=== PATIENT | male | born 1960 | race Caucasian/White ===

== ENCOUNTER 2020-09-04 21:36 | Inpatient (IN) ==
[2020-09-04] MEDS ORDERED: LIDOCAINE 1% 20 ML VIAL ONE (21:40)
[2020-09-04] MEDS ORDERED: HEPARIN/NACL 0.9% 2 UNITS/ML 2,000 UNIT/1,000 ML BAG IV ONE (21:40)
[2020-09-04] MEDS ORDERED: HYDROmorphone 2 MG/1 ML VIAL ONE (21:53)
[2020-09-04] MEDS ORDERED: MIDAZOLAM 2 MG/2 ML VIAL ONE (21:53)
[2020-09-04] MEDS ORDERED: BIVALIRUDIN 250 MG VIAL IV ONE (22:07)
[2020-09-04] MEDS: BIVALIRUDIN 250 MG in SODIUM CHLORIDE 0.9% 50 ML IV SCH (22:13)
[2020-09-04] MEDS ORDERED: TICAGRELOR 90 MG TABLET ONE (22:36)
[2020-09-04 22:40] LABS: Basophils % 0.4 % (0.0-0.8); Eosinophils # 0.1 10*3/uL (0.0-0.87); Eosinophils % 1.4 % (0.00-10.9); Hematocrit 43.2 VOL% (42.0-52.0); Immature Granulocytes % 0.4 %; Immature Granulocytes Absolute 0.03 #; Lymphocytes # 1.1 10*3/uL (1.4-4.0); Lymphocytes % 14.1 % (21.2-54.2); Mean Corpuscular HGB Conc 32.4 GM/DL (32-36); Mean Corpuscular Volume 91.9 FL (87-102); Mean Platelet Volume 11.8 FL (9.6-12.0); Monocytes % 7.5 % (1.7-12.7); Neutrophils % 76.2 % (38.7-73.9); Platelet Count 198 T/CUMM (130-400); Red Cell Distribution Width 14.4 % (9.3-17.3); White Blood Count 7.8 T/CUMM (4-12)
[2020-09-04] MEDS ORDERED: GLUCAGON 1 MG VIAL IM PRN (22:46)
[2020-09-04] MEDS ORDERED: NITROGLYCERIN SL 0.4 MG TABLET SL PRN (22:46)
[2020-09-04] MEDS ORDERED: DEXTROSE 50% 25 GM/50 ML VIAL IV PRN (22:46)
[2020-09-04] MEDS ORDERED: ONDANSETRON 4 MG/2 ML VIAL IV PRN (22:46)
[2020-09-04] MEDS ORDERED: ZALEPLON 5 MG CAPSULE PO PRN (22:46)
[2020-09-04 23:15] LABS: Osmolality,Calculated 280.2 MOS/KG (273-304); Risk Ratio 3.28; VLDL CHOLESTEROL 17.4 MG/DL
[2020-09-04 23:18] LABS: Albumin 2.6 G/DL (3.4-5.0); Bilirubin,Direct 0.65 MG/DL (0.0-0.20); Bilirubin,Indirect 0.8 MG/DL (0.0-1.0); Bilirubin,Total 1.4 MG/DL (0.2-1.0)
[2020-09-04] MEDS ORDERED: FUROSEMIDE 40 MG/4 ML VIAL IV ONE (23:35)
[2020-09-04] MEDS ORDERED: ALBUTEROL/IPRATROPIUM 3 ML NEB RESP TX PRN (23:36)
[2020-09-04] MEDS ORDERED: SODIUM CHLORIDE 0.9% 1,000 ML IV SCH (23:45)
[2020-09-05] MEDS: carvediloL 3.125 MG TABLET PO SCH ×3 (00:05→21:12)
[2020-09-05] MEDS: BIVALIRUDIN 250 MG in SODIUM CHLORIDE 0.9% 50 ML IV SCH ×6 (00:13→09:53)
[2020-09-05 01:27] LABS: Calcium 8.3 MG/DL (8.5-10.1); Osmolality,Calculated 276.5 MOS/KG (273-304); Potassium 4.6 MMOL/L (3.5-5.1)
[2020-09-05] MEDS: ALBUTEROL/IPRATROPIUM 3 ML NEB RESP TX SCH ×4 (01:31→20:24)
[2020-09-05] MEDS: ASPIRIN EC 81 MG TABLET PO SCH (08:15)
[2020-09-05] MEDS: TICAGRELOR 90 MG TABLET PO SCH ×2 (08:15→21:12)
[2020-09-05] MEDS: PANTOPRAZOLE 40 MG TABLET PO SCH (08:15)
[2020-09-05] MEDS: INSULIN LISPRO 100 UNIT/ML SUBCUT SCH ×2 (16:33→21:12)
[2020-09-05] MEDS: DIGOXIN 0.125 MG TABLET PO SCH (16:34)
[2020-09-05] MEDS: FUROSEMIDE 40 MG/4 ML VIAL IV SCH (16:34)
[2020-09-05] MEDS ORDERED: SIMVASTATIN 20 MG TABLET PO SCH (21:00)
[2020-09-05] MEDS: INSULIN GLARGINE 100 UNIT/ML SUBCUT SCH (21:12)
[2020-09-05] MEDS: SIMVASTATIN 10 MG TABLET PO SCH (21:12)
[2020-09-06] MEDS: ALBUTEROL/IPRATROPIUM 3 ML NEB RESP TX SCH ×4 (01:50→19:23)
[2020-09-06 04:07] LABS: Basophils % 0.3 % (0.0-0.8); Eosinophils # 0.2 10*3/uL (0.0-0.87); Eosinophils % 1.7 % (0.00-10.9); Hematocrit 44.8 VOL% (42.0-52.0); Hemoglobin 14.4 GM/DL (14.0-18.0); Immature Granulocytes % 0.5 %; Immature Granulocytes Absolute 0.06 #; Lymphocytes # 1.2 10*3/uL (1.4-4.0); Lymphocytes % 10.9 % (21.2-54.2); Mean Corpuscular HGB Conc 32.1 GM/DL (32-36); Mean Corpuscular Volume 91.4 FL (87-102); Mean Platelet Volume 11.3 FL (9.6-12.0); Monocytes % 6.4 % (1.7-12.7); Neutrophils % 80.2 % (38.7-73.9); Platelet Count 219 T/CUMM (130-400); Red Cell Distribution Width 14.6 % (9.3-17.3); White Blood Count 11.4 T/CUMM (4-12)
[2020-09-06 04:31] LABS: Calcium 8.1 MG/DL (8.5-10.1); Osmolality,Calculated 281.7 MOS/KG (273-304); Potassium 3.7 MMOL/L (3.5-5.1)
[2020-09-06] MEDS: INSULIN LISPRO 100 UNIT/ML SUBCUT SCH ×5 (08:29→20:32)
[2020-09-06] MEDS: TICAGRELOR 90 MG TABLET PO SCH ×2 (08:30→20:29)
[2020-09-06] MEDS: POTASSIUM CHLORIDE 20 MEQ TABLET PO SCH (08:30)
[2020-09-06] MEDS: ASPIRIN EC 81 MG TABLET PO SCH (08:30)
[2020-09-06] MEDS: FUROSEMIDE 40 MG/4 ML VIAL IV SCH (08:30)
[2020-09-06] MEDS: carvediloL 3.125 MG TABLET PO SCH ×2 (08:30→20:30)
[2020-09-06] MEDS: lisinopriL 5 MG TABLET PO SCH (08:30)
[2020-09-06] MEDS: SPIRONOLACTONE 25 MG TABLET PO SCH (08:31)
[2020-09-06] MEDS: DIGOXIN 0.125 MG TABLET PO SCH (08:31)
[2020-09-06] MEDS: PANTOPRAZOLE 40 MG TABLET PO SCH (08:31)
[2020-09-06] MEDS: FUROSEMIDE 40 MG TABLET PO SCH (16:16)
[2020-09-06] MEDS: INSULIN GLARGINE 100 UNIT/ML SUBCUT SCH (20:30)
[2020-09-06] MEDS: SIMVASTATIN 10 MG TABLET PO SCH (20:30)
[2020-09-07] MEDS: ALBUTEROL/IPRATROPIUM 3 ML NEB RESP TX SCH ×3 (02:17→07:13)
[2020-09-07 05:51] LABS: Calcium 7.9 MG/DL (8.5-10.1); Osmolality,Calculated 279.7 MOS/KG (273-304); Potassium 3.8 MMOL/L (3.5-5.1)
[2020-09-07] MEDS: INSULIN LISPRO 100 UNIT/ML SUBCUT SCH ×2 (07:55→12:35)
[2020-09-07] MEDS: TICAGRELOR 90 MG TABLET PO SCH (08:48)
[2020-09-07] MEDS: FUROSEMIDE 40 MG TABLET PO SCH (08:48)
[2020-09-07] MEDS: PANTOPRAZOLE 40 MG TABLET PO SCH (08:49)
[2020-09-07] MEDS: carvediloL 3.125 MG TABLET PO SCH (08:49)
[2020-09-07] MEDS: DIGOXIN 0.125 MG TABLET PO SCH (08:49)
[2020-09-07] MEDS: SPIRONOLACTONE 25 MG TABLET PO SCH (08:49)
[2020-09-07] MEDS: ASPIRIN EC 81 MG TABLET PO SCH (08:49)
[2020-09-07] MEDS: POTASSIUM CHLORIDE 20 MEQ TABLET PO SCH (08:49)
[2020-09-07] MEDS: lisinopriL 5 MG TABLET PO SCH (08:49)
[2020-09-07] MEDS ORDERED: CLOPIDOGREL 300 MG TABLET PO ONE (10:56)
[2020-09-07 12:17] VITALS: BP 150/78
[2020-09-07] MEDS ORDERED: TICAGRELOR 90 MG TABLET PO SCH (21:00)
[2020-09-08] MEDS ORDERED: CLOPIDOGREL 75 MG TABLET PO SCH (09:00)
== END 2020-09-07 14:52 | disposition home or self-care (01) | DRG 175 ==
LOC: N.CL 21:36 → N.ICU 22:20 → N.TELEN 09-05 16:01
PROVIDERS: ADMIT Internal Medicine Cardiovascular Disease; ATTEND Internal Medicine Cardiovascular Disease
PROC: CLCCHCL (ICD-10-PCS; 2020-09-04 22:00)

== ENCOUNTER 2021-08-06 15:55 | Inpatient (IN) ==
[2021-08-06 17:08] LABS: Basophils # 0.1 10*3/uL (0.0-0.2); Basophils % 0.7 % (0.0-0.8); Eosinophils # 0.2 10*3/uL (0.0-0.87); Eosinophils % 2.6 % (0.00-10.9); Hematocrit 50.5 VOL% (42.0-52.0); Hemoglobin 17.2 GM/DL (14.0-18.0); Immature Granulocytes % 0.4 %; Immature Granulocytes Absolute 0.04 #; Lymphocytes # 1.6 10*3/uL (1.4-4.0); Lymphocytes % 17.6 % (21.2-54.2); Mean Corpuscular HGB Conc 34.1 GM/DL (32-36); Mean Platelet Volume 11.2 FL (9.6-12.0); Monocytes # 0.6 10*3/uL (0.11-0.8); Monocytes % 6.8 % (1.7-12.7); Neutrophils % 71.9 % (38.7-73.9); Platelet Count 215 T/CUMM (130-400); Red Blood Count 5.55 MC/CUMM (3.8-5.5); Red Cell Distribution Width 12.9 % (9.3-17.3); White Blood Count 9.2 T/CUMM (4-12)
[2021-08-06 17:20] LABS: INR 1.1; PT Patient Result 11.9 SECS (10.5-12.0); Partial Thromboplastin Time 28.8 SECS (23.8-32.1)
[2021-08-06] MEDS ORDERED: SODIUM CHLORIDE 0.9% 1,000 ML IV STA (17:28)
[2021-08-06] MEDS ORDERED: INSULIN REGULAR 100 UNIT/ML IV STA (18:33)
[2021-08-06] MEDS ORDERED: ALBUTEROL/IPRATROPIUM 3 ML NEB RESP TX STA (18:33)
[2021-08-06 18:36] LABS: Bilirubin,Total 2.6 MG/DL (0.20-1.00); Calcium 9.2 MG/DL (8.5-10.1); Osmolality,Calculated 286.4 MOS/KG (273-304); Potassium 5.7 MMOL/L (3.5-5.1); Total Protein 6.5 G/DL (6.4-8.2)
[2021-08-06] MEDS ORDERED: ZALEPLON 5 MG CAPSULE PO PRN (20:23)
[2021-08-06] MEDS ORDERED: GLUCAGON 1 MG VIAL IM PRN (20:23)
[2021-08-06] MEDS ORDERED: DEXTROSE 10% 250 ML BAG IV PRN (20:33)
[2021-08-06] MEDS ORDERED: NITROGLYCERIN SL 0.4 MG TABLET SL PRN (20:54)
[2021-08-06] MEDS ORDERED: ENOXAPARIN 40 MG/0.4 ML SYRINGE SUBCUT SCH (21:00)
[2021-08-06] MEDS ORDERED: SIMVASTATIN 10 MG TABLET PO SCH (21:30)
[2021-08-06] MEDS: INSULIN REGULAR 100 UNIT/ML SUBCUT SCH (22:14)
[2021-08-06] MEDS: TICAGRELOR 90 MG TABLET PO SCH (22:14)
[2021-08-06] MEDS: carvediloL 6.25 MG TABLET PO SCH (22:14)
[2021-08-07] MEDS: ALBUTEROL 2.5 MG/3 ML NEB RESP TX SCH ×3 (00:48→13:49)
[2021-08-07 04:09] LABS: Basophils # 0.1 10*3/uL (0.0-0.2); Basophils % 0.9 % (0.0-0.8); Eosinophils # 0.2 10*3/uL (0.0-0.87); Eosinophils % 2.8 % (0.00-10.9); Hemoglobin 15.1 GM/DL (14.0-18.0); Immature Granulocytes % 0.3 %; Immature Granulocytes Absolute 0.02 #; Lymphocytes # 1.9 10*3/uL (1.4-4.0); Lymphocytes % 24.3 % (21.2-54.2); Mean Corpuscular HGB Conc 33.6 GM/DL (32-36); Mean Corpuscular Volume 90.5 FL (87-102); Mean Platelet Volume 11.5 FL (9.6-12.0); Monocytes # 0.8 10*3/uL (0.11-0.8); Monocytes % 9.9 % (1.7-12.7); Neutrophils % 61.8 % (38.7-73.9); Platelet Count 198 T/CUMM (130-400); Red Blood Count 4.97 MC/CUMM (3.8-5.5); Red Cell Distribution Width 12.9 % (9.3-17.3); White Blood Count 7.9 T/CUMM (4-12)
[2021-08-07 04:44] LABS: Calcium 9.1 MG/DL (8.5-10.1); Osmolality,Calculated 279.1 MOS/KG (273-304); Potassium 4.2 MMOL/L (3.5-5.1); Risk Ratio 3.39
[2021-08-07] MEDS: INSULIN REGULAR 100 UNIT/ML SUBCUT SCH ×2 (07:44→11:48)
[2021-08-07] MEDS ORDERED: FUROSEMIDE 40 MG TABLET PO SCH (08:00)
[2021-08-07] MEDS ORDERED: PANTOPRAZOLE 40 MG TABLET PO SCH (09:00)
[2021-08-07] MEDS ORDERED: ASPIRIN EC 81 MG TABLET PO SCH (09:00)
[2021-08-07] MEDS ORDERED: lisinopriL 10 MG TABLET PO SCH (09:00)
[2021-08-07] MEDS ORDERED: DAPAGLIFLOZIN 5 MG TABLET PO SCH (09:00)
[2021-08-07 09:30] LABS: Mucus,Urine Occasional /LPF (Occasional); RBC,Urine <1 /HPF (0-4)
[2021-08-07 09:31] LABS: Bilirubin,Urine Negative (Negative); Blood, Urine Negative (Negative); Glucose,Urine (UA) >1000 mg/dL (Negative); Ketones,Urine Trace mg/dL (Negative); Nitrite,Urine Negative (Negative); Protein,Urine Negative (Negative); Urine Appearance Clear (Clear); Urine Color Yellow (Yellow); Urine pH 5.5 (4.5-8.0)
[2021-08-07] MEDS: TICAGRELOR 90 MG TABLET PO SCH (10:00)
[2021-08-07] MEDS: carvediloL 6.25 MG TABLET PO SCH (10:00)
[2021-08-07] MEDS ORDERED: IBUPROFEN 400 MG TABLET PO ONE (11:30)
[2021-08-07 12:13] LABS: Alcohol Patient Result Negative (Negative)
[2021-08-07 12:17] VITALS: BP 94/60
[2021-08-07 12:23] LABS: Barbiturates Screen,Urine Negative (Negative); Benzodiazepines Screen,Urine Negative (Negative); Cannabinoid Screen,Urine Negative (Negative); Opiate Screen,Urine Negative (Negative); Phencyclidine Screen,Urine Negative (Negative)
== END 2021-08-07 15:00 | disposition home or self-care (01) | DRG 194 ==
LOC: N.ED 15:55 → N.EDINP 20:23 → N.TELEN 22:45
PROVIDERS: ADMIT Internal Medicine Geriatric Medicine; ATTEND Internal Medicine Geriatric Medicine

== ENCOUNTER 2021-10-04 15:45 | Observation (INO) ==
[2021-10-04] MEDS ORDERED: DEXTROSE 10% 250 ML BAG IV PRN (19:11)
[2021-10-04] MEDS ORDERED: NICOTINE 21 MG/24 HR PATCH TRANSDERM PRN (19:11)
[2021-10-04] MEDS ORDERED: GLUCAGON 1 MG VIAL IM PRN (19:11)
[2021-10-04] MEDS ORDERED: ONDANSETRON 4 MG/2 ML VIAL IV PRN (19:11)
[2021-10-04] MEDS ORDERED: hydrALAZINE 20 MG/1 ML VIAL IV PRN (19:11)
[2021-10-04] MEDS ORDERED: ALBUTEROL/IPRATROPIUM 3 ML NEB RESP TX PRN (19:44)
[2021-10-04] MEDS ORDERED: MORPHINE 2 MG/1 ML SYRINGE IV PRN (19:46)
[2021-10-04] MEDS ORDERED: ACETAMINOPHEN 325 MG TABLET PO PRN (19:46)
[2021-10-04 19:54] LABS: Basophils # 0.1 10*3/uL (0.0-0.2); Basophils % 0.5 % (0.0-0.8); Eosinophils # 0.3 10*3/uL (0.0-0.87); Eosinophils % 2.5 % (0.00-10.9); Hematocrit 40.9 VOL% (42.0-52.0); Hemoglobin 14.2 GM/DL (14.0-18.0); Immature Granulocytes % 0.3 %; Immature Granulocytes Absolute 0.03 #; Lymphocytes # 2.3 10*3/uL (1.4-4.0); Lymphocytes % 22.9 % (21.2-54.2); Mean Corpuscular HGB Conc 34.7 GM/DL (32-36); Mean Corpuscular Volume 89.1 FL (87-102); Mean Platelet Volume 11.2 FL (9.6-12.0); Monocytes # 0.9 10*3/uL (0.11-0.8); Monocytes % 8.8 % (1.7-12.7); Platelet Count 206 T/CUMM (130-400); Red Blood Count 4.59 MC/CUMM (3.8-5.5); Red Cell Distribution Width 13.2 % (9.3-17.3); White Blood Count 9.9 T/CUMM (4-12)
[2021-10-04 20:16] LABS: Albumin 3.2 G/DL (3.4-5.0); Bilirubin,Total 1.7 MG/DL (0.20-1.00); Calcium 8.5 MG/DL (8.5-10.1); Osmolality,Calculated 286.4 MOS/KG (273-304); Potassium 4.1 MMOL/L (3.5-5.1); Total Protein 6.2 G/DL (6.4-8.2)
[2021-10-04 20:23] LABS: Thyroid Stimulating Hormone 1.6 uIU/ml (0.358-3.74)
[2021-10-04] MEDS: TICAGRELOR 90 MG TABLET PO SCH (22:12)
[2021-10-04] MEDS: INSULIN LISPRO 100 UNIT/ML SUBCUT SCH (22:16)
[2021-10-05 05:36] LABS: Risk Ratio 3.33; VLDL Cholesterol 16.2 MG/DL
[2021-10-05] MEDS ORDERED: ASPIRIN CHEW 81 MG TABLET PO ONE (08:45)
[2021-10-05] MEDS ORDERED: ROSUVASTATIN 20 MG TABLET PO ONE (08:46)
[2021-10-05] MEDS: INSULIN LISPRO 100 UNIT/ML SUBCUT SCH ×4 (10:29→22:43)
[2021-10-05] MEDS: carvediloL 3.125 MG TABLET PO SCH ×2 (10:33→21:21)
[2021-10-05] MEDS: ENOXAPARIN 40 MG/0.4 ML SYRINGE SUBCUT SCH (10:34)
[2021-10-05] MEDS: TICAGRELOR 90 MG TABLET PO SCH ×2 (10:34→21:21)
[2021-10-05] MEDS: PANTOPRAZOLE 40 MG TABLET PO SCH (10:36)
[2021-10-05 18:33] LABS: Barbiturates Screen,Urine Negative (Negative); Benzodiazepines Screen,Urine Negative (Negative); Cannabinoid Screen,Urine Negative (Negative); Opiate Screen,Urine Negative (Negative); Phencyclidine Screen,Urine Negative (Negative)
[2021-10-06 06:55] LABS: Calcium 8.9 MG/DL (8.5-10.1); Osmolality,Calculated 268.7 MOS/KG (273-304); Potassium 4.9 MMOL/L (3.5-5.1)
[2021-10-06] MEDS ORDERED: LACTATED RINGERS 1,000 ML IV SCH (07:00)
[2021-10-06] MEDS ORDERED: lisinopriL 5 MG TABLET PO SCH (09:00)
[2021-10-06] MEDS: INSULIN LISPRO 100 UNIT/ML SUBCUT SCH ×4 (10:06→21:05)
[2021-10-06] MEDS ORDERED: NITROGLYCERIN SL 0.4 MG TABLET SL PRN (10:24)
[2021-10-06] MEDS ORDERED: ETOMIDATE 20 MG/10 ML VIAL IV ONE (12:36)
[2021-10-06] MEDS ORDERED: LIDOCAINE 2% 5 ML VIAL ONE (12:36)
[2021-10-06] MEDS: PANTOPRAZOLE 40 MG TABLET PO SCH (16:12)
[2021-10-06] MEDS: ROSUVASTATIN 20 MG TABLET PO SCH (16:13)
[2021-10-06] MEDS: SPIRONOLACTONE 25 MG TABLET PO SCH (16:13)
[2021-10-06] MEDS: ENOXAPARIN 40 MG/0.4 ML SYRINGE SUBCUT SCH (16:13)
[2021-10-06] MEDS: TICAGRELOR 90 MG TABLET PO SCH ×2 (16:13→21:15)
[2021-10-06] MEDS: ASPIRIN CHEW 81 MG TABLET PO SCH (16:13)
[2021-10-06] MEDS: carvediloL 3.125 MG TABLET PO SCH ×2 (16:13→21:15)
[2021-10-07 05:02] LABS: Basophils # 0.1 10*3/uL (0.0-0.2); Basophils % 0.7 % (0.0-0.8); Eosinophils # 0.4 10*3/uL (0.0-0.87); Hematocrit 46.3 VOL% (42.0-52.0); Hemoglobin 15.8 GM/DL (14.0-18.0); Immature Granulocytes % 0.3 %; Immature Granulocytes Absolute 0.02 #; Lymphocytes # 1.3 10*3/uL (1.4-4.0); Mean Corpuscular HGB Conc 34.1 GM/DL (32-36); Mean Corpuscular Volume 89.9 FL (87-102); Monocytes # 0.7 10*3/uL (0.11-0.8); Monocytes % 9.8 % (1.7-12.7); Neutrophils % 66.2 % (38.7-73.9); Platelet Count 220 T/CUMM (130-400); Red Blood Count 5.15 MC/CUMM (3.8-5.5); Red Cell Distribution Width 12.9 % (9.3-17.3); White Blood Count 7.2 T/CUMM (4-12)
[2021-10-07 05:16] LABS: Calcium 8.9 MG/DL (8.5-10.1); Osmolality,Calculated 281.4 MOS/KG (273-304); Potassium 4.2 MMOL/L (3.5-5.1)
[2021-10-07 08:19] VITALS: BP 92/60
[2021-10-07] MEDS: ENOXAPARIN 40 MG/0.4 ML SYRINGE SUBCUT SCH (09:12)
[2021-10-07] MEDS: INSULIN LISPRO 100 UNIT/ML SUBCUT SCH (09:12)
[2021-10-07] MEDS: TICAGRELOR 90 MG TABLET PO SCH (09:12)
[2021-10-07] MEDS: ASPIRIN CHEW 81 MG TABLET PO SCH (09:12)
[2021-10-07] MEDS: ROSUVASTATIN 20 MG TABLET PO SCH (09:12)
[2021-10-07] MEDS: carvediloL 3.125 MG TABLET PO SCH (09:12)
[2021-10-07] MEDS: SPIRONOLACTONE 25 MG TABLET PO SCH (09:12)
[2021-10-07] MEDS: PANTOPRAZOLE 40 MG TABLET PO SCH (09:12)
[2021-10-07] MEDS ORDERED: DAPAGLIFLOZIN 10 MG TABLET PO SCH (21:00)
== END 2021-10-07 12:05 | disposition home or self-care (01) ==
LOC: N.TELEN → SUATTDRO 18:20
PROVIDERS: ADMIT Internal Medicine; ATTEND Internal Medicine